=== PATIENT | male | born 1940 | race Caucasian/White ===

== ENCOUNTER 2016-08-05 08:22 | Emergency (ER) | payer BC, MEDICARE, OTHER ==
[~2016-08-05] VITALS: Ht 182.9 cm; Wt 135.0 kg
[~2016-08-05 08:22] MED LIST: LORT5TAB PO; Z.0.UNKNOWN
[2016-08-05 08:24] VITALS: BP 148/67; PULSE 70; RESP 20; TEMP 98.1; O2SAT 94
[2016-08-05] MEDS ORDERED: VENTAER INH (08:46)
[2016-08-05] MEDS ORDERED: FURO1TAB60 PO (08:46)
[2016-08-05] MEDS ORDERED: ALBU0.63 NEB (08:46)
[2016-08-05] MEDS ORDERED: NOVOLOGP2 SQ (08:46)
[2016-08-05] MEDS ORDERED: PLOGLITAZONE PO (08:46)
[2016-08-05] MEDS ORDERED: OMEP20TA PO (08:46)
[2016-08-05] MEDS ORDERED: LEVEMIR SQ (08:46)
[2016-08-05] MEDS ORDERED: AMLO1TAB99 PO (08:46)
[2016-08-05] MEDS ORDERED: METO50TA PO (08:46)
[2016-08-05] MEDS ORDERED: TAMS0.4C4 PO (08:46)
[2016-08-05] MEDS ORDERED: SPIR25 PO (08:46)
[2016-08-05] MEDS ORDERED: LOVA40TA PO (08:46)
--- NOTE | 2016-08-05 08:53 | PD ---
HPI Chief Complaint: Respiratory Symptoms Time Seen by Provider: 08:41 Travel History International Travel<30 days: No Contact w/Intl Traveler<30days: No Traveled to known affect area: No History of Present Illness HPI This patient complains of cough and congestion and runny nose. Duration is one month. Severity is moderate. 3 weeks ago he went to an urgent care center and was prescribed a Z-Aly which he completed. He has not had documented fever. He quit smoking 30 years ago. Denies cardiac disease PFSH Past Medical History Hx Anticoagulant Therapy: No Arthritis: Yes Asthma: No Autoimmune Disease: No Blood Disorders: No Cancer: No Cardiovascular Problems: Yes (HTN, CHOL) High Cholesterol: Yes Chemotherapy: No COPD: Yes Diabetes: Yes Patient Takes Glucophage: No Endocrine: Yes GERD: Yes Genitourinary: No Hypertension: Yes Musculoskeletal: Yes Psychiatric: No Respiratory: Yes (COPD) Pneumonia: Yes Radiation Therapy: No Sleep Apnea: Yes Thyroid Disease: No Tetanus Vaccination: > 5 Years Influenza Vaccination: Yes Past Surgical History Eye Surgery: Yes Other Surgery: No Social History Alcohol Use: No Tobacco Use: No Substance Use: No Allergies-Medications (Allergen,Severity, Reaction): Coded Allergies: No Known Allergies (Verified , 08/05/16) Reported Meds & Prescriptions Reported Meds & Active Scripts Active Reported Ventolin Hfa 18 GM Inh (Albuterol Sulfate) 90 Mcg/Act Aer 2 Puff INH Q4-6H PRN Albuterol Neb (Albuterol Sulfate) 0.63 Mg/3 Ml Neb 0.63 Mg NEB Q4HR NEB PRN Levemir Inj (Insulin Detemir) 1,000 unit/ 10 ML Vial 50 Units SQ BID Do not mix with any other Insulin. Novolog Inj (Insulin Aspart) 1,000 Unit/10 Ml Vial 0 SQ DIRECTED Sliding Scale as directed. Lasix (Furosemide) 40 Mg Tab 40 Mg PO DAILY Tamsulosin (Tamsulosin HCl) 0.4 Mg Cap 0.8 Mg PO HS Metoprolol Tartrate 50 Mg Tab 50 Mg PO BID [Ploglitazone] 30 Mg PO DAILY Aldactone (Spironolactone) 25 Mg Tab 25 Mg PO DAILY Lovastatin 40 Mg Tab 40 Mg PO DAILY Omeprazole 20 Mg Tab 20 Mg PO DAILY Qhcsjreras-Rhcvvowgv-Nlnudzqbgwubzhvouht 10-320-25 Mg Tab 1 Tab PO DAILY Review of Systems General / Constitutional: No: Fever Cardiovascular: No: Chest Pain or Discomfort Respiratory: Positive: Cough Physical Exam Narrative RESPIRATORY: Respiratory effort unlabored, no retractions or use of accessory muscles. Breath sounds are clear and symmetric. GASTROINTESTINAL: Abdomen soft, non-tender, nondistended. Positive bowel sounds. No hepato-splenomegaly, or palpable masses. No guarding. CARDIOVASCULAR: Regular rate and rhythm without murmur. Extremities showed trace symmetric edema without varicosities. Data Data Last Documented VS Vital Signs Date Time Temp Pulse Resp B/P Pulse Ox O2 Delivery O2 Flow Rate FiO2 08/05/16 08:37 63 94 Room Air 08/05/16 08:24 98.1 20 148/67 Orders Chest, Pa & Lat (08/05/16 ) MDM Medical Decision Making Medical Screen Exam Complete: Yes Emergency Medical Condition: Yes Medical Record Reviewed: Yes Differential Diagnosis Bronchitis, pneumonia, CHF Narrative Course I have reviewed the patient's electronic medical record. Patient's been treated here for both bronchitis and pneumonia in the past I reviewed his PA and lateral chest x-ray shows some atelectasis changes but no consolidation or pulmonary edema Stable for outpatient family physician follow-up I refilled his albuterol nebulizer solution I don't think further antibiotics are indicated Diagnosis Primary Impression: Chronic cough Additional Impression: COPD with acute lower respiratory infection Additional Instructions: The patient was advised to follow up with their physician and return if they worsen. Med/Other Pt SpecificInfo: Prescription(s) given Scripts Albuterol Neb 2.5 Mg/3 Ml Neb2.5 Mg NEB Q4HR NEB PRN (SHORTNESS OF BREATH) #60 NEBULE Ref 0 Prov:West Rossi MD 08/05/16 Disposition: 01 DISCHARGE HOME Condition: Stable West Rossi MD Aug 05, 2016 08:53
--- NOTE | 2016-08-05 09:49 | RADHPO ---
EXAM DATE/TIME: 08/05/2016 08:58 [facility] COMPARISON: No previous studies available for comparison. INDICATIONS : Short of breath & cold symptoms x 3 weeks MEDICAL HISTORY : Hypercholesterolemia. Chronic obstructive pulmonary disease. Gastroesophageal reflux disease. Hyp ertension. Sleep apnea. Arthritis. Diabetic. SURGICAL HISTORY : Left soulder replacement. ENCOUNTER: Initial ACUITY: 3 weeks PAIN SCORE: 0/10 LOCATION: chest FINDINGS: The heart is mildly enlarged. There is a hiatal hernia. There is compressive atelectasis and minimal effusion at the left base. There is a small amount of linear platelike atelectasis in the left midlun g field. There are chronic interstitial changes. The visualized bony structures demonstrate degenerat demi changes in the right shoulder. There has been arthroplasty on the left. CONCLUSION: 1. Chronic appearing interstitial changes with small area of atelectasis in the left midlung field an d minimal left basilar effusion as well as atelectatic changes in the left lower lobe. Jeff Evans MD on August 05, 2016 at 9:46 Board Certified Radiologist. This report was verified electronically.
[2016-08-05] MEDS ORDERED: ALBU0.08 NEB (11:00)
[2016-08-05 11:01] VITALS: BP 107/58; PULSE 62; RESP 18; O2SAT 94
[2016-08-06] MEDS ORDERED: PIOG30TA4 PO (10:46)
== END 2016-08-05 11:10 | disposition home or self-care (01) ==
LOC: PHED 08:22
DX: J44.0 Chronic obstructive pulmonary disease with (acute) lower respiratory infection (principal); J22 Unspecified acute lower respiratory infection; R05 Cough; I10 Essential (primary) hypertension; E78.00 Pure hypercholesterolemia, unspecified; E11.9 Type 2 diabetes mellitus without complications; K21.9 Gastro-esophageal reflux disease without esophagitis; G47.30 Sleep apnea, unspecified; Z87.891 Personal history of nicotine dependence
CPT/HCPCS: 71020; 99283